=== PATIENT | male | born 1975 | race Two or more races ===

== ENCOUNTER 2018-02-27 05:42 | Emergency (ER) | payer SELFPAY ==
[~2018-02-27] VITALS: Ht 162.6 cm; Wt 74.8 kg
[2018-02-27 05:55] VITALS: BP 148/109
[2018-02-27] MEDS ORDERED: HYDROcodone-ACET 10/325MG TAB PO ONE (07:30)
[2018-02-27] MEDS ORDERED: KETOROLAC TROMETH 60MG/2ML VIAL IM ONE (07:30)
== END 2018-02-27 08:40 | disposition home or self-care (01) ==
LOC: ER 05:44
DX: S82.491A Other fracture of shaft of right fibula, initial encounter for closed fracture (principal); E11.9 Type 2 diabetes mellitus without complications; E78.5 Hyperlipidemia, unspecified; V43.52XA Car driver injured in collision with other type car in traffic accident, initial encounter; Y93.89 Activity, other specified; Y99.8 Other external cause status; Y92.410 Unspecified street and highway as the place of occurrence of the external cause
CPT/HCPCS: 29515; 73560; 73610; 82962; 96372; 99284; J1885

== ENCOUNTER 2021-12-29 15:14 | Inpatient (IN) | payer MEDICAID, OTHER ==
[~2021-12-29] VITALS: Ht 162.6 cm; Wt 69.1 kg
[2021-12-29] MEDS ORDERED: SODIUM CHLORIDE 0.9% 1,000 ML IV ONE (15:30)
[2021-12-29 15:55] LABS: Urine Bacteria NONE SEEN /hpf (None Seen); Urine Blood 3+ /uL (Negative); Urine Specific Gravity 1.033 (1.001-1.035); Urine WBC 46 /hpf (0 - 3)
[2021-12-29 17:25] LABS: Basophils # (auto) 0 10 ^3/uL (0-0.2); Basophils % (auto) 0.3 % (0.0-2.0); Eosinophils # (auto) 0.1 10 ^3/uL (0-0.8); Eosinophils % (auto) 1.5 % (0.0-7.0); Hematocrit 42.8 % (41.0-53.0); Hemoglobin 14.4 g/dL (13.5-17.5); Lymphocytes # (auto) 1.9 10 ^3/uL (0.4-5.4); Lymphocytes % (auto) 21.1 % (10.0-50.0); Mean Corpuscular Hemoglobin 28.4 pg (28.0-32.0); Mean Corpuscular Hgb Conc. 33.6 g/dL (32.0-36.0); Mean Corpuscular Volume 84.6 fL (80.0-100.0); Monocytes # (auto) 0.8 10 ^3/uL (0-1.3); Monocytes % (auto) 8.5 % (0.0-12.0); Neutrophils # (auto) 6.1 10 ^3/uL (1.6-8.6); Neutrophils % (auto) 68.6 % (37.0-80.0); Nucleated Red Blood Cells % 0.1 %; Red Blood Cells 5.05 10^6/uL (4.5-5.90); White Blood Cell 8.9 10^3/uL (4.4-10.8)
[2021-12-29 17:37] LABS: Albumin 2.7 g/dL (3.4-5.0); BUN/Creatinine Ratio 13.3; Calcium 8.6 mg/dL (8.5-10.1); Potassium 4.2 mmol/L (3.5-5.1)
[2021-12-29 17:39] LABS: Bilirubin, Total 0.5 mg/dL (0.2-1.0); Total Protein 6.7 g/dL (6.4-8.2)
[2021-12-29] MEDS ORDERED: CEFTRIAXONE SODIUM 2 GM in D5W 5% 50 ML IV ONE (19:00)
[2021-12-29] MEDS ORDERED: KETOROLAC TROMETH 30 MG/ML 1ML VIAL IV ONE (22:15)
[2021-12-29] MEDS ORDERED: ACETAMINOPHEN 325 MG TAB PO ONE (22:15)
[2021-12-30] MEDS ORDERED: DEXTROSE (50%) 50ML SYRG IV PRN (02:15)
[2021-12-30] MEDS ORDERED: ONDANSETRON HCL 4 MG/2 ML VIAL IV PRN (02:15)
[2021-12-30] MEDS ORDERED: MORPHINE SULFATE 4 MG/ML SYR/VIAL IV PRN (02:15)
[2021-12-30] MEDS ORDERED: HYDROcodone-ACET 5/325MG TAB PO PRN (02:15)
[2021-12-30] MEDS ORDERED: TEMAZEPAM 15 MG CAP PO PRN (02:15)
[2021-12-30] MEDS ORDERED: SODIUM CHLORIDE 0.9% 1,000 ML IV SCH (02:15)
[2021-12-30] MEDS ORDERED: ACETAMINOPHEN 325 MG TAB PO PRN (02:15)
[2021-12-30 03:26] VITALS: BP 115/68
[2021-12-30] MEDS ORDERED: PIO30T PO ×2 (04:12→15:53)
[2021-12-30] MEDS ORDERED: METF-929 PO ×2 (04:12→15:53)
[2021-12-30] MEDS: InsuLIN REG 1unit/0.01ml Soln (100units/ml) SC SCH ×4 (06:28→17:14)
[2021-12-30] MEDS: ACCU-CHEK COMFORT CURVE STRIP VI SCH ×4 (06:28→17:12)
[2021-12-30 09:00] VITALS: BP_SYST 115; BP_SYST 141; BP_DIAS 67; BP_DIAS 72
[2021-12-30] MEDS ORDERED: cefTRIAXone 1GM/50ML D5W 50 ML IV SCH (09:00)
[2021-12-30] MEDS ORDERED: LISINOPRIL 5 MG TAB PO SCH (10:00)
[2021-12-30 13:00] VITALS: BP 124/74
[2021-12-30] MEDS ORDERED: CIPR500T4 PO (15:53)
[2021-12-30] MEDS ORDERED: PHEN-1044 PO (15:58)
[2021-12-30 17:00] VITALS: BP 102/60
[2021-12-30] MEDS ORDERED: ATORVASTATIN 20 MG TAB PO SCH (22:00)
== END 2021-12-30 18:50 | disposition home or self-care (01) | DRG 463 ==
LOC: ER 15:14 → OVERFLOW 12-30 02:13 → WEST WING 12-30 02:57
PROVIDERS: ADMIT Nurse Practitioner; ATTEND Hospitalist
DX: N10 Acute pyelonephritis (principal); E44.0 Moderate protein-calorie malnutrition; E11.65 Type 2 diabetes mellitus with hyperglycemia; E78.5 Hyperlipidemia, unspecified; I10 Essential (primary) hypertension; Z90.49 Acquired absence of other specified parts of digestive tract; Z20.822 Contact with and (suspected) exposure to COVID-19; Z68.26 Body mass index [BMI] 26.0-26.9, adult
CPT/HCPCS: 36415; 74176; 80053; 81001; 82962; 83605; 85025; 87040; 87086; 87426; 96361; 96365; 96375; G0378; J0696; J1815; J1885; J7060

== ENCOUNTER 2022-01-29 11:52 | Emergency (ER) | payer MEDICAID ==
[~2022-01-29] VITALS: Ht 162.6 cm; Wt 74.8 kg
[~2022-01-29 11:52] MED LIST: CIPR500T4 PO; METF-929 PO; PHEN-1044 PO; PIO30T PO
[2022-01-29 12:43] LABS: Urine Bacteria NONE SEEN /hpf (None Seen); Urine Blood 2+ /uL (Negative); Urine Mucus FEW (None Seen); Urine Specific Gravity 1.033 (1.001-1.035); Urine WBC 106 /hpf (0 - 3)
[2022-01-29 13:28] VITALS: BP 156/85
[2022-01-29] MEDS ORDERED: SODIUM CHLORIDE 0.9% 1,000 ML IV ONE ×2 (13:30)
[2022-01-29 14:09] LABS: Basophils # (auto) 0.1 10 ^3/uL (0-0.2); Basophils % (auto) 0.5 % (0.0-2.0); Eosinophils # (auto) 0.1 10 ^3/uL (0-0.8); Eosinophils % (auto) 0.6 % (0.0-7.0); Hematocrit 43.5 % (41.0-53.0); Hemoglobin 14.4 g/dL (13.5-17.5); Lymphocytes # (auto) 1.7 10 ^3/uL (0.4-5.4); Mean Corpuscular Hemoglobin 28.5 pg (28.0-32.0); Mean Corpuscular Hgb Conc. 33.2 g/dL (32.0-36.0); Mean Corpuscular Volume 85.7 fL (80.0-100.0); Monocytes # (auto) 0.9 10 ^3/uL (0-1.3); Monocytes % (auto) 8.1 % (0.0-12.0); Neutrophils # (auto) 8.6 10 ^3/uL (1.6-8.6); Neutrophils % (auto) 75.8 % (37.0-80.0); Red Blood Cells 5.07 10^6/uL (4.5-5.90); Red Cell Distribution Width 13.7 % (11.8-14.3); White Blood Cell 11.3 10^3/uL (4.4-10.8)
[2022-01-29 14:43] LABS: BUN/Creatinine Ratio 8.4; Calcium 8.6 mg/dL (8.5-10.1); Potassium 4.2 mmol/L (3.5-5.1)
[2022-01-29] MEDS ORDERED: InsuLIN REG 1unit/0.01ml Soln (100units/ml) IV ONE ×2 (15:00→15:15)
[2022-01-29] MEDS ORDERED: InsuLIN REG 1unit/0.01ml Soln (100units/ml) ONE (15:10)
[2022-01-29] MEDS ORDERED: SULF400T11 PO (15:14)
== END 2022-01-29 16:15 | disposition home or self-care (01) ==
LOC: ER 11:52
DX: E11.65 Type 2 diabetes mellitus with hyperglycemia (principal); N30.01 Acute cystitis with hematuria; E11.9 Type 2 diabetes mellitus without complications; E78.5 Hyperlipidemia, unspecified; Z79.2 Long term (current) use of antibiotics; Z79.899 Other long term (current) drug therapy
CPT/HCPCS: 36415; 80048; 81001; 82962; 85025; 99283; J1815